=== PATIENT | male | born 1990 | race Two or more races ===

== ENCOUNTER 2020-04-08 09:39 | Emergency (ER) | payer OTHER ==
[~2020-04-08] VITALS: Ht 170.2 cm; Wt 76.2 kg
--- NOTE | 2020-04-08 10:47 | NUR ---
Pt medically cleared for booking. [facility]. Written and verbal after care instructions given. Patient verbalizes understanding of instruction.
[2020-04-08 10:49] VITALS: BP 118/71
== END 2020-04-08 10:54 ==
LOC: ER 09:46
DX: T40.1X1A Poisoning by heroin, accidental (unintentional), initial encounter (principal); Y92.89 Other specified places as the place of occurrence of the external cause
CPT/HCPCS: 72170-TC; 74018